=== PATIENT | female | born 1955 | race American Indian/Alaskan Native ===

== ENCOUNTER 2018-05-21 08:38 | Outpatient (CLI) | payer BC ==
--- NOTE | 2018-05-22 15:09 | Ultrasound Report ---
BILATERAL DIGITAL DIAGNOSTIC MAMMOGRAM with CAD and LEFT BREAST ULTRASOUND: 05/21/18 09:00:00 CLINICAL: Left breast pain. COMPARISON:09/02/13 FINDINGS: The breast is dense, which may obscure small masses. The left outer 5 mm partially circumscribed asymmetry demonstrates partial effacement on the CC view. No correlation on the MLO view. No architectural distortion or suspicious calcifications.The right breast is negative. Ultrasound of the left breast (including all four quadrants and the retroareolar area) demonstrated no mass or cyst to correlate with the mammographic finding. Normal fatty and fibroglandular structures except for a few tiny retroareolar cysts. IMPRESSION: A probably benign left mammographic asymmetry identified only in one view of the mammogram with a negative ultrasound.Negative right breast. No explanation for left breast pain. BI-RADS CATEGORY: 3 - - Probably Benign RECOMMENDATION: Six month followup left mammogram and left breast ultrasound if needed. COMMENT: Patient follow-up letters are generated by our [employer] application.
== END 2018-05-21 08:39 | disposition home or self-care (01) ==
LOC: MAMMO 08:38
PROVIDERS: ATTEND Obstetrics & Gynecology
DX: N60.11 Diffuse cystic mastopathy of right breast (principal); N60.12 Diffuse cystic mastopathy of left breast
CPT/HCPCS: 77066

== ENCOUNTER 2018-12-09 10:11 | Outpatient (CLI) | payer BC ==
--- NOTE | 2018-12-10 12:55 | Mammography Report ---
LEFT DIGITAL DIAGNOSTIC MAMMOGRAM with CAD: 12/09/18 10:11:00 CLINICAL: Six month followup for asymmetry on the CC view. COMPARISON:05/21/18 FINDINGS: The previously described small asymmetry is less prominent than on the prior exam.No mass, architectural distortion or suspicious calcifications. IMPRESSION: No mammographic evidence of malignancy. BI-RADS CATEGORY: 1 - - Negative RECOMMENDATION: Routine mammographic screening. She will be due for a bilateral screening mammogram in April 2019. ACR BI-RADS MAMMOGRAPHIC CODES: 0 = Needs additional imaging evaluation; 1 = Negative; 2 = Benign; 3 = Probably benign; 4 = Suspicious; 5 = Malignant; 6 = Known biopsy-proven malignancy COMMENT: 1. Dense breast tissue, i.e., adenosis, fibrocystic changes, etc., may obscure an underlying neoplasm. 2. Approximately 10% of cancers are not detected with mammography. 3. A negative mammography report should not delay biopsy if a clinically suspicious mass is present. COMMENT: Patient follow-up letters are generated by our [employer] application.
== END 2018-12-09 10:12 | disposition home or self-care (01) ==
LOC: MAMMO 10:11
PROVIDERS: ATTEND Obstetrics & Gynecology
DX: R92.8 Other abnormal and inconclusive findings on diagnostic imaging of breast (principal)

== ENCOUNTER 2019-04-27 15:05 | Emergency (ER) | payer BC ==
[2019-04-27] MEDS ORDERED: ASPIRIN PO ONE (15:27)
--- NOTE | 2019-04-27 15:29 | Emergency Department Report ---
Chief Complaint: Chest Pain Stated Complaint: CHEST PAIN Time Seen by Provider: 04/27/19 15:25 - HPI History of Present Illness: This is a 64 y.o. F. that presents to the ER with left sided chest pain since 1100 today. PMH CAD with 2 stents, HTN Nonsmoker - Exam Vital Signs: Vital Signs 04/27/19 15:26 Temperature 97.9 F Pulse Rate 85 Respiratory 18 Rate Blood Pressure 147/91 O2 Sat by Pulse 100 Oximetry MSE screening note: Focused history and physical exam performed. Due to findings the following was ordered: This initial assessment/diagnostic orders/clinical plan/treatment(s) is/are subject to change based on patient's health status, clinical progression and re- assessment by fellow clinical providers in the ED. Further treatment and workup at subsequent clinical providers discretion. Patient/guardians urged not to elope from the ED as their condition may be serious if not clinically assessed and managed. Initial orders include: Labs and CXR Main ED ED Disposition for MSE Condition: Stable
[2019-04-27 16:19] LABS: Basophils % (Auto) 0.8 % (0.0-1.8); Eosinophils % (Auto) 0.1 % (0.0-4.3); Hematocrit 39.2 % (30.3-42.9); Hemoglobin 13.1 gm/dl (10.1-14.3); Lymphocytes % (Auto) 16.1 % (13.4-35.0); Mean Corpuscular HGB Conc 33 % (30-34); Mean Corpuscular Volume 95 fl (79-97); Monocytes # (Auto) 0.1 K/mm3 (0.0-0.8); Monocytes % (Auto) 2.3 % (0.0-7.3); Platelet Count 280 K/mm3 (140-440); Red Blood Count 4.12 M/mm3 (3.65-5.03); Red Cell Distribution Width 13.2 % (13.2-15.2)
[2019-04-27 16:25] LABS: BUN/Creatinine Ratio 21; Blood Urea Nitrogen 17 mg/dL (7-17); Calcium 9.8 mg/dL (8.4-10.2); Hemolysis Index 16
[2019-04-27] MEDS ORDERED: BABY ASPIRIN PO ONE (16:28)
[2019-04-27] MEDS ORDERED: MORPHINE IV ONE (16:40)
[2019-04-27] MEDS ORDERED: ZOFRAN IV ONE (16:40)
--- NOTE | 2019-04-27 16:40 | Emergency Department Report ---
ED Chest Pain HPI - General Chief Complaint: Chest Pain Stated Complaint: CHEST PAIN Time Seen by Provider: 04/27/19 15:25 Source: patient Mode of arrival: Wheelchair Limitations: No Limitations - History of Present Illness Initial Comments: 64-year-old Afro-[place] female presents to the emergency department from home with a complaint of some left-sided chest pain with radiation towards the left shoulder, left side of the jaw and the upper abdomen that started at about 11 AM this morning. It started off intermittent but has since become constant. It is associated with some nausea vomiting but she denies any fever, shortness of breath. She thought it was gas pains so she took some Nexium and Gas-X without any relief. She also took 2 baby aspirin. She has a past medical history of hypertension. She denies any tobacco or illicit drug use. No recent travel or sick contacts at home. Her primary care physician is Dr. Remy Bangura. Severity scale (0 -10): 7 - Related Data Allergies Allergy/AdvReac Type Severity Reaction Status Date / Time latex AdvReac Rash Verified 04/27/19 15:28 CONTRAST DYE AdvReac Itching Uncoded 05/21/18 08:39 Heart Score - HEART Score History: Moderately suspicious EKG: Normal Age: 45-65 Risk factors: > 3 risk factors or hx of atherosclerotic disease Troponin: < normal limit HEART Score: 4 - Critical Actions Critical Actions: 4-6 pts:12-16.6% risk of adverse cardiac event. Should be admitted ED Review of Systems ROS: Stated complaint: CHEST PAIN Other details as noted in HPI Comment: All other systems reviewed and negative Constitutional: denies: chills, fever Eyes: denies: eye pain, vision change ENT: denies: ear pain, throat pain Respiratory: denies: cough, shortness of breath Cardiovascular: chest pain. denies: edema Gastrointestinal: abdominal pain, nausea, vomiting Genitourinary: denies: dysuria, frequency Musculoskeletal: denies: back pain, arthralgia Skin: denies: rash, lesions Neurological: denies: headache, weakness ED Past Medical Hx - Past Medical History Previous Medical History?: Yes Hx Hypertension: Yes Hx Heart Attack/AMI: Yes (2 stents) Additional medical history: high cholesterol - Social History Smoking Status: Never Smoker Substance Use Type: None ED Physical Exam - General Limitations: No Limitations - Other Other exam information: GENERAL: The patient is well-developed well-nourished. HENT: Normocephalic. Atraumatic. Patient has moist mucous membranes. EYES: Extraocular motions are intact. Pupils equal reactive to light bilaterally. NECK: Supple. Trachea is midline. CHEST/LUNGS: Clear to auscultation. There is no respiratory distress noted. HEART/CARDIOVASCULAR: Regular. There is no tachycardia. There is no murmur. ABDOMEN: Abdomen is soft. mild upper abdominal tenderness to palpation. Patient has normal bowel sounds. There is no abdominal distention. SKIN: Skin is warm and dry. NEURO: The patient is awake, alert, and oriented. The patient is cooperative. The patient has no focal neurologic deficits. The patient has normal speech. MUSCULOSKELETAL: There is no tenderness or deformity. There is no limitation range of motion. There is no evidence of acute injury. ED Course Vital Signs 04/27/19 04/27/19 04/27/19 15:26 16:06 17:07 Temperature 97.9 F Pulse Rate 85 Respiratory 18 Rate Blood Pressure 147/91 132/64 O2 Sat by Pulse 100 99 100 Oximetry 04/27/19 04/27/19 17:26 20:01 Temperature Pulse Rate 60 Respiratory 18 11 L Rate Blood Pressure 111/46 O2 Sat by Pulse 100 Oximetry - Consultations Consultation #1: 04/27/19 20:[address] Whaley of the cardiothoracic service [facility] regarding the patient's large hiatal hernia and intrathoracic stomach. He spoke with his cardiac surgeon attending, and they both agree that this does not appear to be something that requires transfer for emergent surgical intervention as the patient is not having any signs of strangulation or incarceration. The patient will be called by the scheduling service of the cardiothoracic physician for an appointment in about 2-3 weeks. JUSTINO score - Justino Score Age > 65: (0) No Aspirin use within the Past 7 Days: (1) Yes 3 or more CAD Risk Factors: (1) Yes 2 or more Angina events in past 24 hrs: (1) Yes Known CAD with more than 50% Stenosis: (0) No Elevated Cardiac Markers: (0) No ST Deviation Greater than 0.5mm: (0) No JUSTINO Score: 3 ED Medical Decision Making - Lab Data Result diagrams: 04/27/19 15:40 04/27/19 15:40 - EKG Data -: EKG Interpreted by [place] EKG shows normal: sinus rhythm, axis, intervals, QRS complexes (Q waves to the septal leads), ST-T waves Rate: normal - EKG Data When compared to previous EKG there are: previous EKG unavailable Interpretation: other (Q waves to the septal leads) - Radiology Data Radiology results: report reviewed PROCEDURE: XR CHEST 1V AP TECHNIQUE: Chest radiograph single view. HISTORY: Chest Pain COMPARISONS: None . FINDINGS: A large portion of the stomach is in the left hemithorax. This appears to be secondary to a large hiatal hernia rather than elevation of the left hemidiaphragm. There is atelectasis in the left lung base. There is no definite evidence of focal infiltrate and no evidence of pneumothorax or pleural fluid collection. The cardiac silhouette appears to be enlarged. The thoracic aorta is tortuous with atherosclerotic vascular calcification.. The bony structures are notable for degenerative change of the shoulder joints bilaterally and dextrocurvature of the thoracic spine. IMPRESSION: 1. A large portion of the stomach is in the left hemithorax most likely secondary to large hiatal hernia. CT chest would be helpful for further evaluation. 2. Enlarged cardiac silhouette. 3. Tortuous thoracic aorta with atherosclerotic vascular calcification. 4. Degenerative change shoulder joints bilaterally and dextrocurvature thoracic spine. PROCEDURE: CT ABDOMEN and pelvis WO CON TECHNIQUE: Computerized axial tomography of the abdomen and pelvis was performed without intravenous contrast. This study is performed without intravascular contrast material and its sensitivity for abdominal and pelvic pathology, including neoplasms, inflammation, abscess, free fluid, thrombosis, arterial dissection and infarction, is reduced compared with a contrast enhanced study. CT DOSE LENGTH PRODUCT: 1375.7 mGycm HISTORY: abdominal pain COMPARISONS: None . FINDINGS: Visualized lower thorax: See separate CT report. Liver: Normal size and attenuation. Spleen: Normal size and attenuation. Gallbladder and biliary system: Normal. Pancreas: Normal. Adrenals: Mild left adrenal hyperplasia. Kidneys: No hydronephrosis or urolithiasis. GI tract: No bowel obstruction or inflammation. The appendix is not identified. Large hiatal hernia, containing the entire stomach. The stomach does not appear obstructed or inflamed. Lymph nodes and mesentery: Normal. Vasculature: Normal.. Bladder: Normal. Reproductive organs: Normal. Peritoneum: No free fluid. Musculoskeletal structures: No significant abnormality. Other: None. IMPRESSION: Large hiatal hernia, containing the entire stomach. No evidence of gastric obstruction or inflammation . PROCEDURE: CT CHEST WO CON TECHNIQUE: Computerized axial tomography of the chest was performed without contrast material. This study is performed without intravenous contrast and the sensitivity for pathology, including neoplasms, adenopathy, abscess, pulmonary embolism and aortic dissection, is reduced. CT DOSE LENGTH PRODUCT: 498 mGycm HISTORY: chest pain, abnormal CXR, hiatal hernia? COMPARISONS: 04/27/2019 . FINDINGS: Heart and pericardium: No pericardial effusion or thickening. Thoracic aorta: Normal. Pulmonary vasculature: Normal. Lymph nodes: No enlarged thoracic lymph nodes. Lungs: There is left basilar atelectasis abutting hiatal hernia. No infiltrates. Pleural space: No effusion, thickening, or pneumothorax. Musculoskeletal structures: Multilevel thoracic spine degenerative disc changes. Upper abdominal structures: Large hiatal hernia IMPRESSION: Large hiatal hernia. This document is electronically signed by Luci Marti MD., April 27 2019 06:50:21 PM ET Transcribed By: [facility] Dictated By: LUCI MARTI M.D. Electronically Authenticated By: LUCI MARTI M.D. Signed Date/Time: 04/27/19 2072 - Medical Decision Making This patient presents to the emergency department complaining of some chest pain with radiation towards the shoulder, upper abdomen and occasionally her jaw. Labs have been mostly unremarkable including negative troponins 2. No leukocytosis. Chest x-ray showed concern for a hiatal hernia but recommended CT imaging. CT of the chest as well as the abdomen and pelvis were done that shows a large hiatal hernia with intrathoracic stomach. There are no signs of any obstruction or inflammation which means there is very low suspicion for any type of incarceration or strangulation. The patient has no complains of any shortness of breath. Vital signs are stable including being afebrile. There is no tachycardia or hypoxia. She is low on the wells score criteria and therefore low suspicion for any pulmonary embolism. As per the consultation section, I spoke with the cardiothoracic team at [facility] who agrees that this does not appear to require any type of immediate or emergent surgical intervention for transfer at this time. She is going to be called by their team to schedule an outpatient appointment. The patient has already scheduled an appointment with her highway inspector for tomorrow morning. Despite her previous history of coronary artery disease and cardiac stents, the patient is feeling improved, has a separate reason for her symptoms today, and has close outpatient follow-up in the morning. She understands to return to the emergency department immediately with any worsening of her symptoms, difficulty swallowing, development of vomiting, or any acute distress. - Differential Diagnosis NM, Hiatal Hernia, GERD, Pneumonia Critical Care Time: No Critical care attestation.: If time is entered above; I have spent that time in minutes in the direct care of this critically ill patient, excluding procedure time. ED Disposition Clinical Impression: Atypical chest pain, Upper abdominal pain, Hiatal hernia, Paraesophageal hernia Disposition: TO HOME OR SELFCARE Is pt being admited?: No Condition: Stable Instructions: Chest Pain (ED), Hiatal Hernia (ED) Additional Instructions: Please follow-up with your highway inspector tomorrow as previously scheduled. You should receive a phone call from the cardiothoracic service at [facility] to schedule appointment with them. Return to the emergency department immediately with any worsening of your symptoms, new pain, vomiting, difficulty swallowing, development of fever, or with any acute distress. Referrals: Waste [employer]posal [employer] Operator, Your [Other] - 24 Hours Time of Disposition: 20:15
--- NOTE | 2019-04-27 16:47 | XRay Report ---
PROCEDURE: XR CHEST 1V AP TECHNIQUE: Chest radiograph single view. HISTORY: Chest Pain COMPARISONS: None . FINDINGS: A large portion of the stomach is in the left hemithorax. This appears to be secondary to a large hia jaskaran hernia rather than elevation of the left hemidiaphragm. There is atelectasis in the left lung base. There is no definite evidence of focal infiltrate and no evidence of pneumothorax or pleural fluid co llection. The cardiac silhouette appears to be enlarged. The thoracic aorta is tortuous with atherosclerotic vascular calcification.. The bony structures are notable for degenerative change of the shoulder joints bilaterally and dextro curvature of the thoracic spine. IMPRESSION: 1. A large portion of the stomach is in the left hemithorax most likely secondary to large hiatal her danielle. CT chest would be helpful for further evaluation. 2. Enlarged cardiac silhouette. 3. Tortuous thoracic aorta with atherosclerotic vascular calcification. 4. Degenerative change shoulder joints bilaterally and dextrocurvature thoracic spine. This document is electronically signed by Beverley Naqvi MD., April 27 2019 04:44:49 PM ET
[2019-04-27] MEDS ORDERED: MORPHINE ONE (17:22)
[2019-04-27 17:27] LABS: INR 0.93 (0.87-1.13)
[2019-04-27 17:28] LABS: Partial Thromboplastin Time 26.4 Sec. (24.2-36.6)
[2019-04-27 17:31] LABS: Albumin 4.8 g/dL (3.9-5); Bilirubin,Direct 0.2 mg/dL (0-0.2)
--- NOTE | 2019-04-27 18:52 | Cat Scan Report ---
PROCEDURE: CT CHEST WO CON TECHNIQUE: Computerized axial tomography of the chest was performed without contrast material. This study is performed without intravenous contrast and the sensitivity for pathology, including neoplasm s, adenopathy, abscess, pulmonary embolism and aortic dissection, is reduced. CT DOSE LENGTH PRODUCT: 498 mGycm HISTORY: chest pain, abnormal CXR, hiatal hernia? COMPARISONS: 04/27/2019 . FINDINGS: Heart and pericardium: No pericardial effusion or thickening. Thoracic aorta: Normal. Pulmonary vasculature: Normal. Lymph nodes: No enlarged thoracic lymph nodes. Lungs: There is left basilar atelectasis abutting hiatal hernia. No infiltrates. Pleural space: No effusion, thickening, or pneumothorax. Musculoskeletal structures: Multilevel thoracic spine degenerative disc changes. Upper abdominal structures: Large hiatal hernia IMPRESSION: Large hiatal hernia. This document is electronically signed by Luci Marti MD., April 27 2019 06:50:21 PM ET
--- NOTE | 2019-04-27 19:01 | Cat Scan Report ---
PROCEDURE: CT ABDOMEN and pelvis WO CON TECHNIQUE: Computerized axial tomography of the abdomen and pelvis was performed without intravenous contrast. This study is performed without intravascular contrast material and its sensitivity for ab dominal and pelvic pathology, including neoplasms, inflammation, abscess, free fluid, thrombosis, art erial dissection and infarction, is reduced compared with a contrast enhanced study. CT DOSE LENGTH PRODUCT: 1375.7 mGycm HISTORY: abdominal pain COMPARISONS: None . FINDINGS: Visualized lower thorax: See separate CT report. Liver: Normal size and attenuation. Spleen: Normal size and attenuation. Gallbladder and biliary system: Normal. Pancreas: Normal. Adrenals: Mild left adrenal hyperplasia. Kidneys: No hydronephrosis or urolithiasis. GI tract: No bowel obstruction or inflammation. The appendix is not identified. Large hiatal hernia, containing the entire stomach. The stomach does not appear obstructed or inflamed. Lymph nodes and mesentery: Normal. Vasculature: Normal.. Bladder: Normal. Reproductive organs: Normal. Peritoneum: No free fluid. Musculoskeletal structures: No significant abnormality. Other: None. IMPRESSION: Large hiatal hernia, containing the entire stomach. No evidence of gastric obstruction o r inflammation . This document is electronically signed by Luci Marti MD., April 27 2019 06:59:21 PM ET
[2019-04-27 20:10] VITALS: BP 111/46
== END 2019-04-27 20:56 | disposition home or self-care (01) ==
LOC: ED 15:05
DX: K44.9 Diaphragmatic hernia without obstruction or gangrene (principal); R07.89 Other chest pain; R10.10 Upper abdominal pain, unspecified; I10 Essential (primary) hypertension; I25.2 Old myocardial infarction
CPT/HCPCS: 36415; 71045; 71250; 74150; 80048; 80076; 83690; 84484; 85025; 85610; 85730; 93005; 93010; 96374; 96375; 99285; J2270; J2405

== ENCOUNTER 2019-11-08 09:21 | Outpatient (CLI) | payer BC ==
--- NOTE | 2019-11-09 09:24 | Mammography Report ---
DIGITAL SCREENING MAMMOGRAM WITH CAD, 11/08/2019 INDICATION: Routine screening mammography. TECHNIQUE: Digital bilateral 2D mammography was obtained in the craniocaudal and mediolateral obliq ue projections. This examination was interpreted with the benefit of Computer-Aided Detection analysi s. COMPARISON: 12/09/2018 left mammogram and 05/21/2018 bilateral mammogram FINDINGS: Breast Density: The breasts are heterogeneously dense, which may obscure small masses. There is no evidence of dominant mass, suspicious calcifications or architectural distortion in eithe r breast. IMPRESSION: No mammographic evidence of malignancy. Follow up recommendation: Routine yearly BI-RADS Category 1: Negative. A "normal" or negative report should not discourage follow up or biopsy of a clinically significant f inding. A written summary of these findings will be mailed to the patient. The patient will be entered into a mammography reporting system which will generate a reminder letter for the patient's next appointmen t at the appropriate interval. The [employer] recommends yearly mammograms starting at age 40 and continuing as l flavia as a woman is in good health. Breast MRI is recommended for women with an approximate 20-25% or greater lifetime risk of breast cancer, including women with a strong family history of breast or ova keira cancer or who have been treated for Hodgkin's disease. Signer Name: Emory Bah MD Signed: 11/09/2019 9:20 AM Workstation Name: [id number]
== END 2019-11-08 09:22 | disposition home or self-care (01) ==
LOC: MAMMO 09:21
PROVIDERS: ATTEND Obstetrics & Gynecology
DX: Z12.31 Encounter for screening mammogram for malignant neoplasm of breast (principal)
CPT/HCPCS: 77067